=== PATIENT | female | born 1955 | race Caucasian/White ===

== ENCOUNTER 2021-09-16 09:25 | Outpatient (CLI) | payer OTHER, SELFPAY ==
[2021-09-16 12:11] LABS: Cholesterol* 194 mg/dL (90-199)
[2021-09-16 12:12] LABS: HDL Cholesterol* 86 mg/dL (>=50); LDL Cholesterol Calculated 98 mg/dL (<100); Triglycerides* 48 mg/dL (40-149)
[2021-09-20 19:12] LABS: Glucose* 93 mg/dL (60-115)
== END 2021-09-16 09:26 | disposition home or self-care (01) ==
LOC: NFLDREF 09:26
PROVIDERS: PCP Internal Medicine; Visit Provider Internal Medicine
DX: Z13.6 Encounter for screening for cardiovascular disorders (principal); Z13.1 Encounter for screening for diabetes mellitus
CPT/HCPCS: 80061; 82947

== ENCOUNTER 2021-09-21 11:17 | Outpatient (CLI) | payer OTHER, SELFPAY ==
--- NOTE | 2021-09-21 11:30 | CRLHL7_ITS ---
For Patients: As a result of the Century Cures Act, medical imaging exams and procedure reports are released immediately into your electronic medical record. You may view this report before your referring provider. If you have questions, please contact your health care provider. BILATERAL MAMMOGRAM WITH COMPUTER-AIDED DETECTION AND TOMOSYNTHESIS TECHNIQUE: CC and MLO views were obtained. These mammographic images have been obtained using full-field digital technique. These mammographic images were interpreted with the benefit of computer-aided detection. Breast tomosynthesis was used in this interpretation. COMPARISON FILM: 09/15/20, 09/03/19, 08/14/18. FINDINGS: The breasts are heterogeneously dense, which may obscure small masses. IMPRESSION: There is no radiographic evidence for malignancy. ASSESSMENT: BI-RADS Category 1: Negative RECOMMENDATION: Routine screening mammogram in 1 year. A lay language report of this examination will be provided to the patient. Juan Miguel Bishop M.D. Diagnostic/Musculoskeletal Radiologist [email or web address] Transcribed: 9:[address]/Dictated by: Juan Miguel Bishop MD @ 09/22/2021 9:23:00 AM (Electronically Signed)
== END 2021-09-21 11:18 | disposition home or self-care (01) ==
LOC: MAMMO 11:18
PROVIDERS: PCP Internal Medicine; Visit Provider Internal Medicine
DX: Z12.31 Encounter for screening mammogram for malignant neoplasm of breast (principal); R92.2 Inconclusive mammogram
CPT/HCPCS: 77063; 77067

== ENCOUNTER 2022-09-22 08:09 | Outpatient (CLI) | payer OTHER, SELFPAY | END 2022-09-22 08:10 | disposition home or self-care (01) | LOC: LONREF 08:10 | PROVIDERS: PCP Internal Medicine; Visit Provider Internal Medicine | DX: Z00.00 Encounter for general adult medical examination without abnormal findings (principal); M85.89 Other specified disorders of bone density and structure, multiple sites; N95.2 Postmenopausal atrophic vaginitis | CPT/HCPCS: 82306 ==

== ENCOUNTER 2022-09-27 11:18 | Outpatient (CLI) | payer OTHER, SELFPAY ==
--- NOTE | 2022-09-27 11:30 | CRLHL7_ITS ---
For Patients: As a result of the Cures Act, medical imaging exams and procedure reports are released immediately into your electronic medical record. You may view this report before your referring provider. If you have questions, please contact your health care provider. BILATERAL SCREENING MAMMOGRAM WITH COMPUTER-AIDED DETECTION AND TOMOSYNTHESIS TECHNIQUE: CC and MLO views were obtained. These mammographic images have been obtained using full-field digital technique. These mammographic images were interpreted with the benefit of computer-aided detection. Breast Tomosynthesis was used in this interpretation. COMPARISON FILM: 09/21/21, 09/15/20, 09/03/19. FINDINGS: There are scattered areas of fibroglandular density IMPRESSION: There is no radiographic evidence for malignancy. ASSESSMENT: BI-RADS Category 1: Negative RECOMMENDATION: Routine screening mammogram in 1 year. A lay language report of this examination will be provided to the patient. Sandro Ingram M.D. Diagnostic Radiologist [email or web address] Transcribed: 2:22 p.mElsi massey/Dictated by: Sandro Ingram MD @ 09/27/2022 11:48:00 AM (Electronically Signed)
== END 2022-09-27 11:19 | disposition home or self-care (01) ==
LOC: MAMMO 11:19
PROVIDERS: PCP Internal Medicine; Visit Provider Internal Medicine
DX: Z12.31 Encounter for screening mammogram for malignant neoplasm of breast (principal)
CPT/HCPCS: 77063; 77067

== ENCOUNTER 2023-10-02 14:56 | Outpatient (CLI) | payer OTHER, SELFPAY ==
--- OUTSIDE RECORDS SUMMARY | 2023-10-02 14:59 | XMS_ITS | Clinical Summary ---
Author Organization [facility] Address [place], [place] [address] Care Team Providers Care Supervisor Dimension Warehouse Name Role Phone Raysa Chavez MD Primary Care Provider [phone]- [phone] Allergies No known active allergies Medications Medication Sig Dispensed Refills Start Date End Date Status estrogens, conjugated (PREMARIN) vaginal cream Insert 1 Applicatorful into the vagina at bedtime. 1 Tube 0 03/26/2014 Active aspirin (ECOTRIN) 81 mg enteric coated tablet Take 1 tablet by mouth once daily with a meal. 0 03/26/2014 Active mometasone (NASONEX) (50 mcg each actuation) nasal sprayIndications:E ustachian tube dysfunction Inhale 1 [place] into both nostrils once daily. 1 canister 0 03/26/2014 Active antipyrine-benzoca ine, 5.4-1.4 %, (A/B OTIC) otic solutionIndication s:Eustachian tube dysfunction Place 3 Drops into both ears every 2 hours if needed for Ear Pain or Pain. 1 Bottle 0 03/26/2014 Active polyethylene glycol-electrolyte (GOLYTELY) 236-22.74-6.74 -5.86 gram suspensionIndicati ons:Encounter for screening colonoscopy Drink 2 liters (half) the day before colonoscopy and 2 liters (other half) 4-6 hours prior to colonoscopy appointment 4000 mL 11/24/2021 Active Active Problems Problem Noted Date Diagnosed Date Colon polyp 08/12/2016 Overview: Colonoscopy 07/2016 polyp repeat in 5 years Colonoscopy 11/2021 long colon, repeat in 5 years with colowrap at hospital Family history of malignant neoplasm of gastrointestinal tract 08/24/2011 Overview: Colonoscopy 07/2011 normal repeat in 5 years Colonoscopy 11/2021 long colon, [facility] in [facility] preventative health meaintenance 09/25/2006 Overview: Colonoscopy 2006 - repeat in 5 years Cholesterol Paps: hx ascus HPV neg Papanicolaou smear of cervix with atypical squamous cells of undetermined significance (ASC-US) 09/25/2006 Overview: ASCUS Neg HPV Immunizations Name Administration Dates Next Due AMB Influenza, IIV3 (Age >=3 years)(Flu Clinic Only) 02/29/2008 AMB Influenza, IIV4 PF (=>6 mos Flulaval,Fluzone Fluarix)(Flu Clinic Only) 11/28/2019,11/30/2018,12/01/2017, 01 4 Influenza, IIV3 (Age >=3 years) 12/25/2006 Influenza, IIV4 12/18/2015,11/19/2014 Td (Age >=7 Years) 05/28/1997 Tdap 12/25/2006 Family History Medical History Relation Name Comments Diabetes Father Hyperlipidemia Father Cancer-breast Maternal Aunt Cancer-breast Mother Hyperlipidemia Mother Cancer-colon Sister 3 dx age 55 Other Sister 4 sister #2 age 52 due to arrhythmia Relation Name Status Comments Father Maternal Aunt Mother Alive Sister 1 (Age 52) arrhythmia Sister 2 (Age 12) Congenital Heart Problem Sister 3 Sister 4 Social History Tobacco Use Types Packs/Day Years Used Date Smoking Tobacco: Never Smokeless Tobacco: Never Tobacco Cessation:Counseling Given: Yes Alcohol Use Standard Drinks/Week Comments Yes 0 (1 standard drink = 0.6 oz pur e alcohol) one to two a month Sex and Gender Information Value Date Recorded Sex Assigned at Not on file Gender Identity Not on file Sexual Orientation Not on file Obstetrics History Para Term AB IAB SAB Ectopic Multiple Livin g Live Births 3 3 3 0 0 0 0 0 3 Date Outcome GA Total Labor Labor/2nd/3rd Weight Sex Type Anes PTL Moriah A1 A5 Name Clin Term Term Term Last Filed Vital Signs Vital Sign Reading Time Taken Comments Blood Pressure 114/73 08/11/2016 8:53 AM CDT Pulse 69 08/11/2016 8:53 AM CDT Temperature 36.6 ??C (97.8 ??F) 03/26/2014 7:13 PM CS T Respiratory Rate - - Oxygen Saturation 100% 08/11/2016 8:53 AM CDT Inhaled Oxygen Concentration - - Weight 61.1 kg (134 lb 9.6 oz) 09/11/2008 7:31 P M CDT Height 161.3 cm (5' 3.5) 10/12/2007 10:39 AM CD T Body Mass Index 23.47 10/12/2007 10:39 AM CDT Plan of Treatment Health Maintenance Due Date Last Done Comments Depression screening for age 12+ 1969 BMI (ht and wt on same day) for age 18+ 08/08/1975 Hepatitis C screening for ag e 18-79 08/08/1975 Zoster (shingles) series for age 50+ (1 of 2) 08/08/2007 Mammogram for age 45-75 10/11/2008 10/12/2007, 09/25 Lipids for age 45-75 11/06/2012 11/07/2007, 05/27/19 07 Tetanus booster 12/25/2016 12/25/2006, 05/28/1997 DEXA/DXA scan for age 65+ 2022 Pneumococcal series for age 65+ (1 of 1 - PCV) 2022 COVID-19 vaccine series ( - 2022-24 season) 2022 02/11/2021, 05/28/2020, 04/30/2020 Influenza for age 65+ 10/29/2023 11/28/2019 , 11/30/2018, 12/01/2017, Additional history exists Colonoscopy through age 75 12/02/202612/02, 12/02/2021, 08/11/2016, Additional history exists Tdap Completed 12/25/2006 Procedures Procedure Name Priority Date/Time Associated Diagnosis Comments COLONOSCOPY 12/02/2021 9:33 AM CDT LIPID PANEL Routine 11/07/2007 9:17 AM CDT Lipid Screening XR MAMMO BILAT SCREEN FFDM (IA) Routine 10/12/2007 10:46 AM CDT Other Screening Mammogram from Last 3 Months or Most Recently Relevant to Health Maintenance Results * COLONOSCOPY (12/02/2021 9:33 AM CDT) 12/02/2021 9:33 AM CDT Narrative Transcriptions Lex Acosta MD - 12/02/2021 10:52 AM CDT Patient Name: Yasmine Murillo Procedure Date: 12/02/2021 Gender: Female Date of : 1955 Admit Type: Outpatient Procedure: Colonoscopy Proceduralist: Lex Acosta MD , Yessy Mauricio (Nurse), Patricia Christensen RN (Nurse) Indications/Pre-Op Diagnosis: Screening in patient at increased risk:Family history of 1st-degree relative withcolorectal cancer before age 60 years, High risk colon cancer surveillance: Personal history of adenoma less than 10 mm in size, Last colonoscopy: July 2016 Medications: Fentanyl 100 micrograms IV, Midazolam 2 mgIV, The level of sedation administered wasmoderate Procedure Description: The patient had risks, benefits and alternatives explained to andgave informed consent. The patient had a stable cardiopulmonary status and judged an adequate candidate for conscious sedation. The endoscope PCF-H190L [id number] was passed through the anus andadvanced to the terminal ileum, with identification of the appendiceal orifice and IC valve. The colonoscopy was performed without difficulty. The patient tolerated the procedure well. The quality of the bowel preparation was good. The ileocecal valve, appendiceal orifice, and rectum were photographed. Complications: No immediate complications. Estimated Blood Loss & Specimen: Estimated blood loss: none. Specimen collected - None Findings: The perianal and digital rectal examinations were normal. The colon (entire examined portion) was significantly redundant. The exam was otherwise without abnormality. Impressions/Post-Op Diagnosis: - Redundant colon. - The examination was otherwise normal. - No specimens collected. Recommendation: - Patient has a contact number available for emergencies. The signsand symptoms of potential delayed complications were discussed with the patient. Return to normal activities tomorrow. Written discharge instructions were provided to the patient. - Resume previous diet. - Continue present medications. - Repeat colonoscopy in 5 years for screening purposes with acolowrap at the hospital. Moderate Sedation: A time out was performed before the procedure. Moderate (conscious) sedation was administered by the endoscopy nurse and supervised bythe endoscopist. The following parameters were monitored: oxygensaturation, heart rate, blood pressure, EKG, CO2, respiratory rate, adequacy of pulmonary ventilation and reponse to care. Please refer to the patient's medical record flowsheets and nursing notes for moderate sedation details. Total physician intraservice time was 30 minutes. Lex Acosta MD 12/02/2021 10:49:52 AM This report has been signed electronically. Note Initiated On: 12/02/2021 9:33 AM Procedure Code(s): --- Professional --- 12827, Colonoscopy, flexible; diagnostic, including collection of specimen(s) bybrushing or washing, when performed (separateprocedure) Diagnosis Code(s): --- Professional --- Z80.0, Family history of malignant neoplasmof digestive organs Z86.010, Personal history of colonicpolyps Q43.8, Other specified congenitalmalformations of intestine CPT copyright 2020 [employer]. All rights reserved. The codes documented in this report are preliminary and upon placer miner reviewmay be revised to meet current compliance requirements. Scope In: 10:10:24 AM Scope Withdrawal Time 0 hours 9 minutes 20 seconds Scope Out: 10:39:24 AM Lex Acosta MD PROCEDURE ORD * LIPID PANEL (11/07/2007 9:17 AM CDT) CHOLESTEROL,TOTAL 166 110 - 199 mg/dL [facility] TRIGLYCERIDES 50 <150 mg/dL [facility] HDL CHOLESTEROL 54 >40 mg/dL [facility] CHOL/HDL RATIO 3.[address] [facility] LDL CHOLESTEROL 102 <131 mg/dL [facility] PATIENT STATUS Fasting [facility] Blood specimen (specimen) BLOOD SPECIMEN / Unknown 11/07/2007 9:17 AM CDT 11/07/2007 9:11 AM CDT Yeimi Patino MD CHEMISTRY [facility] [address] [place] [address] * XR MAMMO BILAT SCREEN FFDM (10/12/2007 10:46 AM CDT) MAMMOGRAM ACR 2 Benign Finding Anatomical Region Laterality Modality BREASTS, Breast Left, Breast Right Bilateral Mammography 10/12/2007 10:4 6 AM CDT Narrative 10/15/2007 8:03 AM CDT Please see scanned document for results of this study. Procedure Note Alexandre Crespo, - 10/15/2007 Please see scanned document for results of this study. Yeimi Patino MD MAMMO from Last 3 Months or Most Recently Relevant to Health Maintenance Care Teams Supervisor [employer] Relationship Specialty Start Date End Date Raysa Chavez MD [address] [place] [address] [id number] PCP - General Internal Medicine 08/11/16
--- NOTE | 2023-10-02 15:00 | CRLHL7_ITS ---
For Patients: As a result of the Century Cures Act, medical imaging exams and procedure reports are released immediately into your electronic medical record. You may view this report before your referring provider. If you have questions, please contact your health care provider. BILATERAL SCREENING MAMMOGRAM WITH COMPUTER-AIDED DETECTION AND TOMOSYNTHESIS TECHNIQUE: CC and MLO views were obtained. These mammographic images have been obtained using full-field digital technique. These mammographic images were interpreted with the benefit of computer-aided detection. Breast tomosynthesis was used in this interpretation. COMPARISON FILM: 09/27/22, 09/21/21, 09/15/20. FINDINGS: The breasts are extremely dense, which lowers the sensitivity of mammography. IMPRESSION: There is no radiographic evidence for malignancy. ASSESSMENT: BI-RADS Category 1: Negative RECOMMENDATION: Routine screening mammogram in 1 year. A lay language report of this examination will be provided to the patient. SANDRO SLOAN M.D. Diagnostic Radiologist [email or web address] Transcribed: 3:[address]/Dictated by: Sandro Sloan MD @ 10/03/2023 9:34:00 AM (Electronically Signed)
== END 2023-10-02 14:57 | disposition home or self-care (01) ==
LOC: MAMMO 14:57
PROVIDERS: PCP Internal Medicine; Visit Provider Internal Medicine
DX: Z12.31 Encounter for screening mammogram for malignant neoplasm of breast (principal); R92.2 Inconclusive mammogram
CPT/HCPCS: 77063; 77067

== ENCOUNTER 2023-11-22 15:17 | Outpatient (CLI) | payer OTHER, SELFPAY ==
--- OUTSIDE RECORDS SUMMARY | 2023-11-22 15:19 | XMS_ITS | Clinical Summary ---
Author Organization [facility] Address [place], [place] [address] Care Team Providers Care Periodicals Library Assistant Name Role Phone Raysa Chavez MD Primary Care Provider [phone]- [phone] Allergies No known active allergies Medications Medication [...] nasal sprayIndications:E ustachian tube dysfunction Inhale 1 [place] into both nostrils once daily. 1 canister [...] Noted Date Diagnosed Date Colon polyp 08/12/2016 Overview (12/02/2021): Colonoscopy 07/2016 polyp repeat in 5 years Colonoscopy 11/2021 long colon, repeat in 5 years with colowrap at [facility] Family history of malignant neoplasm of gastrointestinal tract 08/24/2011 Overview (12/02/2021): Colonoscopy 07/2011 normal repeat in 5 years Colonoscopy 11/2021 long colon, repeat in 5 years with colowrap at [facility] health meaintenance 09/25/2006 Overview (09/25/2006): Colonoscopy 2006 - repeat in 5 years Cholesterol Paps: hx ascus HPV neg Papanicolaou smear of cervix with atypical squamous cells of undetermined significance (ASC-US) 09/25/2006 Overview (09/25/2006): ASCUS Neg HPV Encounters Date Type Department Care Team Description 10/03/2023 Lab Requisition [facility] [phone] Raysa Chavez MD from Last 3 Months Immunizations Name Administration Dates Next Due AMB [...] - PCV) 2022 COVID-19 vaccine series ( season) 2023 02/11/2021, 05/28/2020, 04/30/2020 Influenza for age 65+ 10/29/2023 11/28/2019 , 11/30/2018, 12/01/2017, Additional history exists Colonoscopy through age 75 12/02/202612/02, 12/02/2021, 08/11/2016, Additional history exists Tdap Completed 12/25/2006 Procedures Procedure Name Priority Date/Time Associated Diagnosis Comments LAB TRACKING EVENT Routine 10/02/2023 1: 30 PM CDT TEACHING ASSOCIATE THIN PREP PAP SCREEN IMAGED Routine 10/02/2023 1:30 PM CDT HPV HIGH RISK Routine 10/02/2023 1:30 PM CDT COLONOSCOPY 12/02/2021 9:33 AM CDT LIPID PANEL Routine 11/07/2007 9:17 AM CDT Lipid Screening XR MAMMO BILAT SCREEN FFDM (IA) Routine 10/12/2007 10:46 AM CDT Other Screening Mammogram from Last 3 Months or Most Recently Relevant to Health Maintenance Results * LAB TRACKING EVENT (10/02/2023 1:30 PM CDT) Other (Other) Client Collect / Unknown 10/02/2023 1:30 PM CDT 10/03/2023 3:29 PM CDT Raysa Chavez MD LAB BILL ONLY [facility] [address] [place] [address], * (ABNORMAL) TEACHING ASSOCIATE THIN PREP PAP SCREEN IMAGED (10/02/2023 1:30 PM CDT) Case Report Gynecologic Cytology Report ? Case: [id number] ? Authorizing Provider: ??Raysa Chavez MD ?Collected: ? 10/02/2023 1330 ? Ordering Location: ? [facility] ?Received: ?10/04/2023 0901 ? First Screen: ?Lucia Addison ? Pathologist: ? Jose A Magaña Jr., ? MD ? Specimen: ?TEACHING ASSOCIATE ThinPrep Vial Screening, Cervical ? 10/12/2023 4:25 PM CDT [facility] INTERPRETATION/ RESULT ATYPICAL SQUAMOUS CELLS OF UNDETERMINED SIGNIFICANCE (ASCUS)(A) (none) 10/12/2023 4:25 PM CDT [facility] IMEN ADEQUACY Satisfactory for evaluation Endocervical component present 10/12/2023 4:25 PM CDT [facility] HPV REQUEST HPV and PAP 10/12/2023 4:25 PM CDT [facility] Last Pap Date 10/12/2023 4:25 PM CDT [facility] Comment:10/19 Last Pap Result ASCUS 4:25 PM CDT [facility] Menstrual Status Postmenopausal 10/12/2023 4:25 PM CDT [facility] [place] Bx Done Today No 10/12/2023 4:25 PM CDT [facility] Additional Information 10/12/2023 4:25 PM CDT [facility] Comment: Interpreted at [facility] - [address] [place] [address], [place] [address] Automated Review Successful 10/12/2023 4:25 PM CDT [facility] Comment:Specimen processed s uccessfully by automated tankman device, ThinPrep Imaging System, [employer] ANCILLARY TESTING TEACHING ASSOCIATE HPV Ordered, Please see separate report 10/12/2023 4:25 PM CDT [facility] Note The pap test is a screening technique, not a diagnostic procedure. It is used primarily to screen for squamous cancers and precursor lesions. Published studies have shown that it is subject to both false negative and false positive results. The pap test should not be used as the sole means to diagnose or exclude pre-malignant and malignant lesions. 10/12/2023 4:25 PM CDT [facility] Other (Cervical) 10/02/2023 1:30 PM CDT 10/04/2023 9:01 AM CDT Raysa Chavez MD PATHOLOGY/CYTOLOGY [facility] [address] * HPV HIGH RISK (10/02/2023 1:30 PM CDT) TYPE 16 Negative Negative 10/05/2023 11:08 AM CDT [facility] TYPE 18 Negative Negative 10/05/2023 11:08 AM CDT [facility] OTHER HIGH RISK TYPES Negative Negative 10/05/2023 11:08 AM CDT [facility] Other (Cervical) 10/02/2023 1:30 PM CDT 10/04/2023 9:01 AM CDT Narrative [facility] - 10/05/2023 11:08 AM CDT HPV types 16, 18, 31, 33, 35, 39, 45, 51, 52, 56, 58, 59, 66 and 68 DNA were undetectable or below the pre-set threshold. Methodology: Oc Surendra 4800 HPV Test Raysa Chavez MD MICROBIOLOGY [facility] [address] [place] [address], * COLONOSCOPY (12/02/2021 9:33 AM CDT) 12/02/2021 [...] candidate for conscious sedation. The endoscope PCF-H190L [id number] was passed through the anus andadvanced to [...] 9:33 AM Procedure Code(s): --- Professional --- 61109, Colonoscopy, flexible; diagnostic, including collection of specimen(s) bybrushing or washing, when performed (separateprocedure) Diagnosis Code(s): --- Professional --- Z80.0, Family history of malignant neoplasmof digestive organs Z86.010, Personal history of colonicpolyps Q43.8, Other specified congenitalmalformations of intestine CPT copyright 2020 [employer]. All rights reserved. The codes documented in this report are preliminary and upon computer repair engineer reviewmay be revised to meet current compliance requirements. Scope In: 10:10:24 AM Scope Withdrawal Time 0 hours 9 minutes 20 seconds Scope Out: 10:39:24 AM Lex Acosta MD PROCEDURE ORD * LIPID PANEL (11/07/2007 9:17 AM CDT) CHOLESTEROL,TOTAL 166 110 - 199 mg/dL [facility] TRIGLYCERIDES 50 <150 mg/dL [facility] HDL CHOLESTEROL 54 >40 mg/dL [facility] CHOL/HDL RATIO 3.07 <4.51 [facility] LDL CHOLESTEROL 102 <131 mg/dL [facility] PATIENT STATUS Fasting [facility] Blood specimen (specimen) BLOOD SPECIMEN / Unknown 11/07/2007 9:17 AM CDT 11/07/2007 9:11 AM CDT Yeimi Patino MD CHEMISTRY [facility] [address] [place] [address] * XR MAMMO BILAT SCREEN FFDM (10/12/2007 10:46 AM CDT) MAMMOGRAM ACR 2 Benign Finding Anatomical Region Laterality Modality BREASTS, Breast Left, Breast Right Bilateral Mammography 10/12/2007 10:4 6 AM CDT Narrative 10/15/2007 8:03 AM CDT Please see scanned document for results of this study. Procedure Note Alexandre Crespo DO - 10/15/2007 Please see scanned document for results of this study. Yeimi Patino MD MAMMO from Last 3 Months or Most Recently Relevant to Health Maintenance Care Teams Periodicals Library Assistant Relationship Specialty Start Date End Date Raysa Chavez MD [address] [place] [address] PCP - General Internal Medicine 08/11/16
--- NOTE | 2023-11-22 15:30 | CRLHL7_ITS ---
For Patients: As a result of the Century Cures Act, medical imaging exams and procedure reports are released immediately into your electronic medical record. You may view this report before your referring provider. If you have questions, please contact your health care provider. DXA BONE MINERAL DENSITY STUDY Reason for exam: Osteopenia. Current height (in): 62. Weight (lb): 122. Menopause age: 54. Ethnicity: White. 1. Have you had a previous hip or vertebral fracture? No. 2. Have you had any fractures during your adult life which did not result from significant trauma (e.g., auto accident)? No. 3. Did either of your parents have a hip fracture? Yes. 4. Do you smoke? No. 5. Have you ever taken Glucocorticoids? No. 6. Do you have rheumatoid arthritis? No. 7. Do you have secondary osteoporosis? No. 8. Do you drink 3 or more alcoholic drinks per day? No. 9. Are you being treated for osteoporosis? No. 10. Have you ever taken any of the following medications: Actonel, Evista, Fosamax, Miacalcin, Reclast, Boniva, Forteo, HRT (i.e. estrogen/hormone therapy), Protelos, Prolia, Vitamin D, Calcium, other ??? please specify. ANSWER: Yes, vitamin D, calcium. 11. Do you have any of the following medical conditions: Anorexia or bulimia, asthma or emphysema, end stage renal disease, hyperparathyroidism, any seizure disorders, cancer, inflammatory bowel diseases, hysterectomy, other ??? please specify. ANSWER: No. 12. What was your maximum height (inches)? 64. 13. Do you perform weight bearing exercise regularly? Yes. 14. Do you regularly consume dairy products? Yes. 15. Do you drink caffeinated beverages? Yes. 16. At what age did your period start? 18. 17. Are you premenopausal? No. 18. How many full term pregnancies have you had? 3. 19. Have you ever missed your period for more than 6 months in a row (not including or menopause)? No. TECHNIQUE: Bone mineral density study was performed using the [employer]. FINDINGS: The results of the study expressed as bone mineral density (BMD) are as follows: Lumbar spine L1 to L4: BMD: 0.922 g/cm2. T-score: -1.1. Z-score: 0.7. Neck Left: BMD: 0.625 g/cm2. T-score: -2.0. Z-score: -0.4. Right: BMD: 0.677 g/cm2. T-score: -1.6. Z-score: 0.0. Total Left: BMD: 0.781 g/cm2. T-score: -1.3. Z-score: 0.0. Right: BMD: 0.820 g/cm2. T-score: -1.0. Z-score: 0.3. IMPRESSION: Osteopenia. *Comparison exams done prior to 07/2019 were performed on different unit, [facility]. COMPARISON: Compared with scan of 08/16/2018, the bone mineral density has decreased by 3.9 percent at the spine and increased by 1.9 percent at the hip. Compared with scan of 06/08/2015, the bone mineral density has increased by 0.5 percent at the spine and increased by 0.4 percent at the hip. FRAX 10-year Fracture Risk Major Osteoporotic Fracture: 18 percent Hip Fracture: 2 percent Reported Risk Factors: [place] () Neck BMD=0.625, BMI=22.3, parental fracture MESHA OLIVIA M.D. [email or web address] bM/Dictated by: Mesha Olivia MD @ 11/23/2023 2:41:00 PM (Electronically Signed)
== END 2023-11-22 15:18 | disposition home or self-care (01) ==
PROVIDERS: PCP Internal Medicine; Visit Provider Internal Medicine
DX: M85.88 Other specified disorders of bone density and structure, other site (principal)
CPT/HCPCS: 77080

== ENCOUNTER 2024-10-04 10:00 | Outpatient (CLI) | payer BC, SELFPAY | END 2024-10-04 10:01 | disposition home or self-care (01) | LOC: NFLDREF 10-09 18:41 | PROVIDERS: PCP Internal Medicine; Referring Provider Internal Medicine; Visit Provider Internal Medicine | DX: M85.80 Other specified disorders of bone density and structure, unspecified site (principal) | CPT/HCPCS: 82306 ==

== ENCOUNTER 2024-10-07 11:19 | Outpatient (CLI) | payer BC, SELFPAY ==
--- NOTE | 2024-10-07 11:30 | CRLHL7_ITS ---
For Patients: As a result of the Century Cures Act, medical imaging exams and procedure reports are released immediately into your electronic medical record. You may view this report before your referring provider. If you have questions, please contact your health care provider. INDICATION: BILATERAL SCREENING MAMMOGRAM, ASYMPTOMATIC 69 Y/O FEMALE COMPARISON: 10/02/2023, 09/27/2022, 09/21/2021 TECHNIQUE: Digital mammogram in CC and MLO projections including computer-aided detection (CAD) and tomosynthesis. BREAST COMPOSITION: The breasts are heterogeneously dense, which may obscure small masses. FINDINGS: No suspicious findings. ASSESSMENT: BI-RADS 1 Negative RECOMMENDATION: Annual screening mammogram. A lay language report of this examination will be provided to the patient. Dictated by: Sandro Ingram MD @ 10/07/2024 12:08:28 (Electronically Signed)
== END 2024-10-07 11:20 | disposition home or self-care (01) ==
LOC: MAMMO 11:19
PROVIDERS: PCP Internal Medicine; Visit Provider Internal Medicine
DX: Z12.31 Encounter for screening mammogram for malignant neoplasm of breast (principal); R92.333 Mammographic heterogeneous density, bilateral breasts
CPT/HCPCS: 77063; 77067